=== PATIENT | female | born 1990 | race Two or more races ===

== ENCOUNTER 2024-11-25 11:33 | Observation (INO) | payer OTHER ==
[2024-11-25] MEDS ORDERED: AMOX500C2 PO (13:14)
--- NOTE | 2024-11-29 12:28 | DVHDS2 ---
Physician Discharge Progress N Final Diagnosis: positive for covid,uri Operations or Procedures: Operations or Procedures nst,sono Condition on Discharge: Good Disposition: Home Discharge Instructions: Diet: Regular Activity: Light activity Medications: zpack Follow Up Care: Specialist: 2d Discharge Statement: "Patient was advised to return to the ER or call 911 if any headaches, dizziness, shortness of breath, chest pain, abdominal pain, bleeding, fevers, or worsening of medical condition. Patient was counseled about treatment plan, medications, possible side effects, patientverbalized understanding. All questions were answered to the best of my ability. This discharge took greater then 30 minutes in planning, reviewing documentation, counseling the patient, and discussing with other team members." Visit Coding OBGYN Date of Service: Nov 25, 2024 Billing Provider: OTTO MO DO HOUSEHOLD APPLIANCE INSTALLER Common Visit Codes: [id number] (HIGH) HOUSEHOLD APPLIANCE INSTALLER Procedure Codes: 57212-81- NON-STRESS TEST OTTO MO DO Nov 29, 2024 12:28
== END 2024-11-25 12:45 | disposition home or self-care (01) ==
LOC: LDRP 11:33
PROVIDERS: ADMIT Obstetrics & Gynecology; ATTEND Obstetrics & Gynecology
DX: O98.513 Other viral diseases complicating pregnancy, third trimester (principal); U07.1 COVID-19; O36.8130 Decreased fetal movements, third trimester, not applicable or unspecified; O99.513 Diseases of the respiratory system complicating pregnancy, third trimester; J06.9 Acute upper respiratory infection, unspecified; Z3A.30 30 weeks gestation of pregnancy; Z79.899 Other long term (current) drug therapy
CPT/HCPCS: 59025; 81002; 94760; G0378

== ENCOUNTER 2024-11-25 12:46 | Emergency (ER) | payer OTHER ==
[~2024-11-25] VITALS: Ht 162.6 cm; Wt 86.4 kg
[2024-11-25 12:59] VITALS: BP 131/43; TEMP 98
--- NOTE | 2024-11-25 13:09 | ED.PDOC ---
History of Present Illness HPI Comments 34 y.o female who is 31 weeks gestation, presents to the ED for a chief complaint of a productive dry cough associated with a headache, congestion, runny nose, SOB and a sore throat that started 3 days ago. Patient reports symptoms have worsened this morning, states she is having a difficult time swallowing. Patient denies any abdominal pain, chills. chest pain, vaginal bleeding. Patient tested herself for Covid at home today and it resulted positive. Chief Complaint: Flu like Time Seen by MD: 13:03 Primary Care Provider: ADAN Reviewed Notes: Nurses Notes, Medications, Allergies Allergies: Coded Allergies: Avocado (Verified Allergy, Severe, 11/25/24) Latex (Verified Allergy, Severe, 11/25/24) Uncoded Allergies: IV CONTRAST (Allergy, Severe, 11/25/24) Home Meds Active Scripts Amoxicillin Trihydrate (Amoxicillin) 500 Mg Cap, 1 CAP PO TID for 5 Days, #15 CAP Prov:ELEANOR TONG MD 11/25/24 Information Source: Patient Mode of Arrival: Ambulatory Severity: Moderate Timing: Days (3) Duration: Since onset Past Medical History PAST MEDICAL HISTORY: Denies Surgical History: Denies all surgeries 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 History Family History Family History: Reviewed,noncontributory to illness, No family hx of Cancer, No family hx of DM, No family hx of Heart glenn, No family hx of HTN, No family hx ofKidney glenn, No family hx of Liver glenn, No family hx of Lung glenn, No family hx of Stroke Social History Smoker: Non-Smoker Alcohol: Denies ETOH Use Drugs: Denies Drug Use Lives In: Home Constitutional: reports: fever; denies: chills, diaphoresis, fatigue, malaise, sweats, weakness, others EENTM: reports: nose congestion, throat pain, throat swelling; denies: blurred vision, double vision, ear bleeding, ear discharge, ear drainage, ear pain, ear ringing, eye pain, eye redness, hearing loss, mouth pain, mouth swelling, nasal discharge, nose bleeding, nose pain, photophobia, tearing, voice changes, others Respiratory: reports: cough; denies: hemoptysis, orthopnea, SOB at rest, shortness of breath, SOB with excertion, stridor, wheezing, others Cardiovascular: denies: chest pain, dizzy spells, diaphoresis, Dyspnea on exertion, edema, irregular heart beat, left arm pain, lightheadedness, palpitations, PND, syncope, others Gastrointestinal: denies: abdomen distended, abdominal pain, blood streaked bowels, constipated, diarrhea, dysphagia, difficulty swallowing, hematemesis, melena, nausea, poor appetite, poor fluid intake, rectal bleeding, rectal pain, vomiting, others Genitourinary: denies: abnormal vagina bleeding, burning, dyspareunia, dysuria, flank pain, frequency, hematuria, incontinence, pain, , vagina discharge, urgency, others Neurological: reports: headache; denies: dizziness, fainting, left sided numbness, left sided weakness, numbness, paresthesia, pre-existing deficit, right sided numbness, right sided weakness, seizure, speech problems, tingling, tremors, weakness, others Musculoskeletal: denies: back pain, gout, joint pain, joint swelling, muscle pain, muscle stiffness, neck pain, others Integumetry: denies: bruises, change in color, change in hair/nails, dryness, laceration, lesions, lumps, rash, wounds, others Allergic/Immunocompromised: denies: Difficulty Healing, Frequent Infections, Hives, Itching, others Hematologic/Lymphatic: denies: anemia, blood clots, easy bleeding, easy bruising, swollen glands, others Endocrine: denies: excessive hunger, excessive sweating, excessive thirst, excessive urination, flushing, intolerance to cold, intolerance to heat, unexplained weight gain, unexplained weight loss, others Psychiatric: denies: anxiety, bipolar disorder, depression, hopeless, panic disorder, schizophrenia, sleepless, suicidal, others All Other Systems: Reviewed and Negative Physical Exam General Appearance: Moderate Distress HEENT: Pharyngeal Erythema Neck: Full Range of Motion, Non-Tender, Normal, Normal Inspection Respiratory: Chest Non-Tender, Lungs Clear, No Accessory Muscle Use, No Respiratory Distress, Normal Breath Sounds Cardiovascular: No Edema, No JVD, No Murmur, No Gallop, Normal Peripheral Pulses, Regular Rate/Rhythm Breast Exam: Deferred Gastrointestinal: No Organomegaly, Non Tender, No Pulsatile Mass, Normal Bowel Sounds, Soft Genitalia: Deferred Pelvic: Deferred Rectal: Deferred Extremities: No calf tenderness, Normal capillary refill, Normal inspection, Normal range of motion, Non-tender, No pedal edema Musculoskeletal : Apperance: Normal Neurologic: Alert, stable manager II-XII nml as Tested, No Motor Deficits, Normal Affect, Normal Mood, No Sensory Deficits Cerebellar Function: Normal Reflexes: Normal Skin: Dry, Normal Color, Warm Peripheral Pulses: 3+ Radial (R), 3+ Radial (L) Lymphatic: No Adenopathy Was a procedure done? Was a procedure done?: No Differential Dx Considerations may include: URI, Covid 19, Bronchitis, Pneumonia, Viral syndrome, Dehydration X-Ray, Labs, Meds, VS Vital Signs Date Time Temp Pulse Resp B/P (MAP) Pulse Ox O2 Delivery O2 Flow Rate FiO2 11/25/24 13:50 78 18 97 Room Air 11/25/24 12:59 98.0 78 18 131/43 (72) 97 98.0 11/25/24 12:57 98.0 78 18 131/43 (72) 97 98.0 Lab Test 11/25/24 13:10 Range/Units SARS-CoV-2 Antigen (Rapid) Positive NEGATIVE Patient alert. Complaining of sore throat. On examination mild erythema back of the throat. Vitals stable. Answering questions. Ambulating. No leg swelling. No shortness a breath. Saturation pristine on room air. Was given prescription of amoxicillin antibiotic. She was seen [facility] Normal . She denies cramping pain She denies bleeding. Reviewed her history. Explained to the patient. Was told to follow up with her primary care physician. Was told to come back if there is any problem. Time of 1ST Reevaluation: 13:08 Reevaluation 1ST: Improved Patient Education/Counseling: Diagnosis, Treatment, Prognosis Family Education/Counseling: No Family Present Departure 1 Departure Time of Disposition: 13:13 Impression: Primary Impression: Normal Qualified Codes: Z34.90 - Encounter for supervision of normal , unspecified, unspecified trimester Additional Impressions: Pharyngitis Qualified Codes: J02.9 - Acute pharyngitis, unspecified Coronavirus infection Disposition: 01 HOME / SELF CARE / HOMELESS Condition: Good e-Prescriptions Amoxicillin Trihydrate (Amoxicillin) 500 Mg Cap 1 CAP PO TID for 5 Days, #15 CAP Prov: ELEANOR TONG MD 11/25/24 Discharged With: Self Critical Care Note Critical Care Time?: No Stability Stability form required: No I personally scribed for ELEANOR TONG MD ([email or web address]) on 11/25/24 at 13:09. Electronically submitted by Paola Vargas ([facility]). ELEANOR TONG MD Nov 25, 2024 13:09
[2024-11-25] MEDS ORDERED: AMOX500C2 PO (13:14)
[2024-11-25 13:50] VITALS: PULSE 78; RESP 18; O2SAT 97
[2024-11-25 13:52] LABS: COVID19 ANTIGEN SOFIA FIA POSITIVE (NEGATIVE)
--- NOTE | 2024-11-27 11:59 | DVHDS2 ---
Physician Discharge Progress N Final Diagnosis: dec ovement 30wks Operations or Procedures: Operations or Procedures nst,sono Condition on Discharge: Good Disposition: Home Discharge Instructions: Diet: Regular Activity: No Restrictions, As Tolerated Medications: na Follow Up Care: Specialist: 1d Discharge Statement: "Patient was advised to return to the ER or call 911 if any headaches, dizziness, shortness of breath, chest pain, abdominal pain, bleeding, fevers, or worsening of medical condition. Patient was counseled about treatment plan, medications, possible side effects, patientverbalized understanding. All questions were answered to the best of my ability. This discharge took greater then 30 minutes in planning, reviewing documentation , counseling the patient, and discussing with other team members." Visit Coding OBGYN Date of Service: Nov 25, 2024 Billing Provider: OTTO MO DO PARKING LOT ATTENDANT AND CASHIER Common Visit Codes: 79141-[id number] (HIGH) PARKING LOT ATTENDANT AND CASHIER Procedure Codes: 98618-49- NON-STRESS TEST OTTO MO DO Nov 27, 2024 11:59
== END 2024-11-25 14:00 | disposition home or self-care (01) ==
LOC: ER 12:46
DX: O98.513 Other viral diseases complicating pregnancy, third trimester (principal); U07.1 COVID-19; Z79.899 Other long term (current) drug therapy; Z3A.31 31 weeks gestation of pregnancy; Z91.040 Latex allergy status; Z88.8 Allergy status to other drugs, medicaments and biological substances
CPT/HCPCS: 36415; 87426